=== PATIENT | female | born 1995 | race Caucasian/White ===

== ENCOUNTER 2017-11-15 16:56 | Emergency (ER) | payer SELFPAY ==
[~2017-11-15] VITALS: Ht 157.5 cm; Wt 65.5 kg
[~2017-11-15 16:56] MED LIST: IBUP-1223 PO; IRON1TAB60 PO; NITR100C56 PO; OXYC-302 PO; PREN1TAB52 PO
[2017-11-15 17:52] LABS: BASOPHILS # (AUTO) 0.02 x10^3/uL (0-0.1); BASOPHILS % (AUTO) 0 % (0-1); EOSINOPHILS # (AUTO) 0.02 x10^3/uL (0-0.4); EOSINOPHILS % (AUTO) 0 % (1-7); LYMPHOCYTES % (AUTO) 25 % (22-44); MD NO; MEAN CORPUSCULAR HEMOGLOBIN 32.3 pg (27.0-34.8); MEAN CORPUSCULAR HGB CONC 34.4 g/dL (32.4-35.8); MEAN CORPUSCULAR VOLUME 93.9 fL (80-100); MEAN PLATELET VOLUME 8.1 fL (7.4-10.4); MONOCYTES # (AUTO) 0.56 x10^3/uL (0.2-0.8); MONOCYTES % (AUTO) 6 % (2-9); NEUTROPHILS # (AUTO) 5.94 x10^3/uL (1.8-6.8); NEUTROPHILS % (AUTO) 68 % (42-75); PLATELET COUNT 295 x10^3/uL (130-400); RED BLOOD COUNT 4.33 x10^6/uL (3.82-5.3); RED CELL DISTRIBUTION WIDTH 13.4 % (9.6-15.2)
[2017-11-15 17:53] LABS: CULTURE INDICATED? YES; MICROSCOPIC INDICATED
[2017-11-15 18:01] LABS: ALBUMIN 3.8 g/dL (3.4-5.0); ANION GAP 10 mmol/L (5-15); CALCIUM 8.8 mg/dL (8.5-10.1); CHLORIDE 108 mmol/L (98-107)
[2017-11-15 18:19] LABS: ALANINE AMINOTRANSFERASE 18 U/L (12-78); ALKALINE PHOSPHATASE 46 U/L (45-117); BILIRUBIN,TOTAL 0.5 mg/dL (0.2-1.0); TOTAL PROTEIN 7.5 g/dL (6.4-8.2)
[2017-11-15 20:21] LABS: CLUE CELLS NONE SEEN (NONE SEEN)
[2017-11-15 20:22] LABS: WET PREP WBCS FEW (FEW)
[2017-11-15 21:13] VITALS: BP 107/64
== END 2017-11-15 21:53 | disposition home or self-care (01) ==
LOC: ED 21:20
DX: O23.591 Infection of other part of genital tract in pregnancy, first trimester (principal); B37.3 Candidiasis of vulva and vagina; Z3A.01 Less than 8 weeks gestation of pregnancy
CPT/HCPCS: 36415; 76801; 80053; 81001; 84702; 85025; 87086; 87210; 87491; 87591; 87808; 99285

== ENCOUNTER 2017-12-25 18:27 | Emergency (ER) | payer MEDICAID, OTHER ==
[~2017-12-25] VITALS: Ht 157.5 cm; Wt 65.2 kg
[2017-12-25 18:30] VITALS: BP 118/79
[2017-12-25 19:28] LABS: BASOPHILS # (AUTO) 0.02 x10^3/uL (0-0.1); BASOPHILS % (AUTO) 0 % (0-1); EOSINOPHILS # (AUTO) 0.02 x10^3/uL (0-0.4); EOSINOPHILS % (AUTO) 0 % (1-7); LYMPHOCYTES # (AUTO) 1.85 x10^3/uL (1-3.4); LYMPHOCYTES % (AUTO) 27 % (22-44); MD NO; MEAN CORPUSCULAR HEMOGLOBIN 32.7 pg (27.0-34.8); MEAN CORPUSCULAR HGB CONC 34.4 g/dL (32.4-35.8); MEAN PLATELET VOLUME 7.9 fL (7.4-10.4); MONOCYTES # (AUTO) 0.46 x10^3/uL (0.2-0.8); MONOCYTES % (AUTO) 7 % (2-9); NEUTROPHILS # (AUTO) 4.45 x10^3/uL (1.8-6.8); NEUTROPHILS % (AUTO) 65 % (42-75); PLATELET COUNT 240 x10^3/uL (130-400); RED BLOOD COUNT 3.82 x10^6/uL (3.82-5.3)
[2017-12-25 19:41] LABS: ALBUMIN 3.5 g/dL (3.4-5.0); ANION GAP 7 mmol/L (5-15); CALCIUM 8.7 mg/dL (8.5-10.1); CHLORIDE 108 mmol/L (98-107); CREATININE 0.64 mg/dL (0.55-1.02)
[2017-12-25 19:58] LABS: CULTURE INDICATED? YES; MICROSCOPIC INDICATED
== END 2017-12-25 20:47 | disposition home or self-care (01) ==
LOC: ED 20:41
DX: O26.892 Other specified pregnancy related conditions, second trimester (principal); Z3A.14 14 weeks gestation of pregnancy; E11.9 Type 2 diabetes mellitus without complications; Z87.891 Personal history of nicotine dependence
CPT/HCPCS: 36415; 76815; 80048; 81001; 82040; 84702; 85025; 86901; 87086; 99285

== ENCOUNTER 2018-10-25 11:44 | Emergency (ER) | payer MEDICAID ==
[~2018-10-25] VITALS: Ht 160 cm; Wt 65.2 kg
[2018-10-25 12:57] LABS: MICROSCOPIC AUTO
[2018-10-25 13:03] LABS: CULTURE INDICATED? YES
[2018-10-25 13:15] LABS: BASOPHILS # (AUTO) 0.02 x10^3/uL (0-0.1); BASOPHILS % (AUTO) 1 % (0-1); EOSINOPHILS # (AUTO) 0.02 x10^3/uL (0-0.4); EOSINOPHILS % (AUTO) 1 % (1-7); LYMPHOCYTES % (AUTO) 37 % (22-44); MD NO; MEAN CORPUSCULAR HEMOGLOBIN 31.1 pg (27.0-34.8); MEAN CORPUSCULAR HGB CONC 34.6 g/dL (32.4-35.8); MEAN CORPUSCULAR VOLUME 89.9 fL (80-100); MEAN PLATELET VOLUME 8.7 fL (7.4-10.4); MONOCYTES # (AUTO) 0.36 x10^3/uL (0.2-0.8); MONOCYTES % (AUTO) 8 % (2-9); NEUTROPHILS # (AUTO) 2.53 x10^3/uL (1.8-6.8); NEUTROPHILS % (AUTO) 55 % (42-75); PLATELET COUNT 285 x10^3/uL (130-400); RED BLOOD COUNT 4.19 x10^6/uL (3.82-5.3); RED CELL DISTRIBUTION WIDTH 13.8 % (9.6-15.2)
[2018-10-25 13:21] LABS: PROTHROMBIN TIME 10.6 Seconds (9.6-11.5)
[2018-10-25 13:25] LABS: ALBUMIN 3.5 g/dL (3.4-5.0); ANION GAP 7 mmol/L (5-15); CALCIUM 8.8 mg/dL (8.5-10.1); CHLORIDE 108 mmol/L (98-107); CREATININE 0.82 mg/dL (0.55-1.02)
[2018-10-25 13:31] LABS: ALANINE AMINOTRANSFERASE 23 U/L (12-78); ALKALINE PHOSPHATASE 72 U/L (45-117); BILIRUBIN,TOTAL 0.4 mg/dL (0.2-1.0); TOTAL PROTEIN 7.5 g/dL (6.4-8.2)
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
--- NOTE | 2018-10-25 16:15 | NUR ---
ASSIST MD WITH VAG EXAM.
[2018-10-25 16:30] VITALS: BP 136/88
--- NOTE | 2018-10-25 16:31 | NUR ---
PT IS RESTING IN BED TALKING WITH STAFF, RESPIRATIONS EQUAL AND NON LABORED. NAD. PT IS CONNECTED TO THE MONITOR. CALL LIGHT WITHIN REACH.
--- NOTE | 2018-10-25 16:51 | NUR ---
Patient given discharge instructions and they have confirmed that they understand the instructions. Patient ambulatory with steady gait.
== END 2018-10-25 16:53 | disposition home or self-care (01) ==
LOC: ED 16:10
DX: N93.8 Other specified abnormal uterine and vaginal bleeding (principal)
CPT/HCPCS: 36415; 76830; 80053; 81001; 84703; 85025; 85610; 85730; 86850; 86900; 87077; 87086; 87186; 99284